=== PATIENT | female | born 1960 | race Caucasian/White ===

== ENCOUNTER 2018-02-27 21:33 | Inpatient (IN) | payer SELFPAY ==
[2018-02-27] MEDS ORDERED: ASPIRIN 81 MG TABLET, CHEWABLE PO ONE (22:16)
[2018-02-27] MEDS ORDERED: METOPROLOL TARTRATE PF/INJ 5 MG/5 ML SDV IV ONE (22:17)
[2018-02-27] MEDS ORDERED: NITROGLYCERIN 2% OINTMENT 1 GM PACKET TP ONE (22:17)
[2018-02-27] MEDS ORDERED: ACETAMINOPHEN 325 MG TABLET PO ONE (22:23)
[2018-02-27 22:27] LABS: ABSOLUTE BASOPHILS # (AUTO) 0.1 10^3/uL (0.0-0.2); ABSOLUTE EOSINOPHILS # (AUTO) 0.2 10^3/uL (0.0-0.6); ABSOLUTE LYMPHOCYTES (AUTO) 3.2 10^3/uL (0.5-4.7); ABSOLUTE MONOCYTES (AUTO) 0.6 10^3/uL (0.1-1.4); ABSOLUTE NEUT (AUTO) 7.6 10^3/uL (1.7-8.2); BASOPHILS % (AUTO) 0.6 % (0-2); EOSINOPHILS % (AUTO) 1.3 % (0-6); HEMATOCRIT 45.4 % (36.0-47.0); HEMOGLOBIN 15.4 g/dL (12.0-15.5); LYMPHOCYTES % (AUTO) 27.3 % (13-45); MEAN CORPUSCULAR HEMOGLOBIN 30.9 pg (27.0-33.4); MEAN CORPUSCULAR HGB CONC 33.9 g/dL (32.0-36.0); MEAN CORPUSCULAR VOLUME 91 fl (80-97); MONOCYTES % (AUTO) 5.5 % (3-13); PLATELET COUNT 142 10^3/uL (150-450); RED BLOOD COUNT 4.97 10^6/uL (3.72-5.28); RED CELL DISTRIBUTION WIDTH 15.2 % (11.5-14.0); SEGMENTED NEUTROPHILS % (AUTO) 65.3 % (42-78); TOTAL CELLS COUNTED % (AUTO) 100 %; WHITE BLOOD COUNT 11.6 10^3/uL (4.0-10.5)
[2018-02-27 22:35] LABS: ALANINE AMINOTRANSFERASE 14 U/L (9-52); ALBUMIN 4.3 g/dL (3.5-5.0); ALKALINE PHOSPHATASE 168 U/L (38-126); ANION GAP 13 (5-19); ASPARTATE AMINO TRANSFERASE 21 U/L (14-36); BILIRUBIN,DIRECT 0.5 mg/dL (0.0-0.4); BLOOD UREA NITROGEN 14 mg/dL (7-20); CALCIUM 11.4 mg/dL (8.4-10.2); CARBON DIOXIDE 26 mmol/L (22-30); CHLORIDE 100 mmol/L (98-107); CREATINE KINASE 32 U/L (30-135); GLUCOSE 113 mg/dL (75-110); SODIUM 139.4 mmol/L (137-145); TOTAL PROTEIN 7.6 g/dL (6.3-8.2)
--- NOTE | 2018-02-27 22:38 | RADIOLOGY REPORT (SQ) ---
PROCEDURE: XR CHEST 1 VIEW HISTORY: chest pain COMPARISON: None TECHNIQUE: The study was done on 02/27/2018 at 10:26 PM, local time Single projection of the chest was done. FINDINGS: Scoliotic curvature of the thoracic spine is noted . There are no discrete airspace infiltrates, pneumothoraces or pleural effusions. The pulmonary vascularity is normal. The cardiomediastinal silhouette is unremarkable for patient's age and sex. IMPRESSION: There is no acute pleural-parenchymal process seen in the imaged lung dumont. Location of Interpretation: Teleradiology
[2018-02-27 22:43] LABS: CREATINE KINASE MB 1.05 ng/mL (<4.55); TROPONIN I 0.021 ng/mL
[2018-02-27] MEDS ORDERED: MORPHINE SULFATE 10 MG/ML INJ IV ONE (22:56)
--- NOTE | 2018-02-28 00:23 | ER Document Report ---
ED Cardiac - General Chief Complaint: Chest Pain Stated Complaint: CHEST PAIN, SHORTNESS OF BREATH, PAIN IN RIGHT ARM Time Seen by Provider: 02/27/18 22:15 Mode of Arrival: Ambulatory Information source: Patient Notes: This is a 57-year-old female with a history of CHF, hypertrophic cardiomyopathy , hypertension, hiatal hernia and migraines. Patient is currently on no medicines. She presents to the emergency room after developing chest pain tonight at approximately 8:52 PM. The chest pain started during light activity. Patient states it was a tightness which radiated to her jaws and right arm. She does states she is had blood pressures which have been elevated recently (230/100). She does states she took her own nitroglycerin and there was some relief. TRAVEL OUTSIDE OF THE [place] IN LAST 30 DAYS: No - HPI Patient complains to provider of: Chest pain Use of: denies: Alcohol, Amphetamines, Bath salts, Caffeine, Cocaine, Decongestants, Other Was the onset of pain: Gradual Is the pain a: New problem Chest pain location: Substernal Quality of pain: Tightness Chest pain radiation location: Left jaw, Right jaw, Right arm Severity now: Mild Severity at worst: Moderate Pain level currently: 1 Chest pain precipitating factors: At Rest Cardiac risk factors: Hypertension, Hx CHF Associated symptoms: Shortness of breath Exacerbated by: Activity Relieved by: Rest Similar symptoms previously: Yes Recently seen / treated by doctor: No - Related Data Allergies/Adverse Reactions: nitroglycerin [Nitroglycerin] Allergy (Verified 09/02/10 15:17) Past Medical History - General Information source: Patient - Social History Smoking Status: Current Every Day Smoker Cigarette use (# per day): Yes - 10 cigarettes a day Chew tobacco use (# tins/day): No Smoking Education Provided: Yes Frequency of alcohol use: None Drug Abuse: None Lives with: Family Family History: None Patient has suicidal ideation: No Patient has homicidal ideation: No - Past Medical History Cardiac Medical History: Reports: Hx Congestive Heart Failure, Hx Hypertension Pulmonary Medical History: Reports: None Neurological Medical History: Reports: None Endocrine Medical History: Reports: None Renal/ Medical History: Reports: None. Denies: Hx Peritoneal Dialysis Malignancy Medical History: Reports: None GI Medical History: Reports: None Musculoskeletal Medical History: Reports None Skin Medical History: Reports None Psychiatric Medical History: Reports: None Traumatic Medical History: Reports: None Infectious Medical History: Reports: None Surgical Hx: Negative Review of Systems - Review of Systems Constitutional: denies: Chills, Fever EENT: No symptoms reported Cardiovascular: See HPI Respiratory: See HPI Gastrointestinal: Nausea. denies: Abdominal pain, Vomiting, Black stools Genitourinary: No symptoms reported Female Genitourinary: No symptoms reported Musculoskeletal: No symptoms reported Skin: No symptoms reported Hematologic/Lymphatic: No symptoms reported Neurological/Psychological: No symptoms reported Physical Exam - Vital signs Vitals: Temp Pulse Resp BP Pulse Ox 98.1 F 89 18 151/87 H 20 L 02/27/18 21:33 02/27/18 21:33 02/27/18 21:33 02/27/18 21:33 02/27/18 21:33 Notes: Physical exam: GENERAL: She is alert and oriented x3, no acute distress. She is complaining of mild 2 out of 10 pain. HEAD: Atraumatic, normocephalic. EYES: Pupils equal round and reactive to light, extraocular movements intact, sclera anicteric, conjunctiva are normal. ENT: TMs normal, nares patent, oropharynx clear without exudates. Moist mucous membranes. NECK: Normal range of motion, supple without obvious mass or JVD. LUNGS: Breath sounds clear to auscultation bilaterally and equal. No wheezes rales or rhonchi. HEART: Regular rate and rhythm without murmurs, rubs or gallops. ABDOMEN: Soft, normoactive bowel sounds. No tenderness to palpation. No guarding, no rebound. No masses appreciated. EXTREMITIES: Normal range of motion, no pitting or edema. No clubbing or cyanosis. NEUROLOGICAL: Cranial nerves II through XII grossly intact. Normal speech, moving all extremities. PSYCH: Normal mood, normal affect. SKIN: Warm, Dry, normal turgor, no rashes or lesions noted. Course - Re-evaluation Re-evalutation: 02/28/18 02:45 Patient treated with aspirin, nitrates, metoprolol. She was pain-free at the time of admission. - Vital Signs Vital signs: Temp Pulse Resp BP Pulse Ox 98.1 F 89 24 H 122/79 95 02/27/18 21:33 02/27/18 21:33 02/28/18 02:01 02/28/18 02:00 02/28/18 02:00 - Laboratory Result Diagrams: 02/27/18 22:08 02/27/18 22:08 Laboratory results interpreted by me: 02/27/18 02/27/18 22:08 22:08 WBC 11.6 H RDW 15.2 H Plt Count 142 L Glucose 113 H Calcium 11.4 H Direct Bilirubin 0.5 H Alkaline Phosphatase 168 H - Diagnostic Test Radiology reviewed: Image reviewed, Reports reviewed - No obvious infiltrates - EKG Interpretation by Me Rate: Normal Rhythm: NSR - EKG showed normal sinus rhythm with T wave inversions V1 V2 V3. No recent ECG (the last one was 2010). Discharge - Discharge Clinical Impression: Chest pain Condition: Stable Disposition: ADMITTED OBSERVATION Admitting Provider: Hospitalist - Dr Murillo Unit Admitted: Telemetry
[2018-02-28] MEDS ORDERED: ACETAMINOPHEN 325 MG TABLET PO PRN (01:11)
[2018-02-28] MEDS ORDERED: PROMETHAZINE HCL 25 MG TABLET PO PRN (01:11)
[2018-02-28] MEDS ORDERED: PROMETHAZINE HCL INJ 25 MG/1 ML VIAL IV PRN (01:11)
[2018-02-28] MEDS ORDERED: MAG HYDROX/AL HYDROX/SIMETH SUSP 30 ML UDCUP PO PRN (01:11)
[2018-02-28] MEDS ORDERED: METOPROLOL TARTRATE PF/INJ 5 MG/5 ML SDV IV PRN (02:02)
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
[2018-02-28] MEDS: NORMAL SALINE 1000 ML 1,000 ML IV PRN ×2 (03:32→23:25)
--- NOTE | 2018-02-28 07:35 | EKG REPORT ---
SEVERITY:- ABNORMAL ECG - SINUS RHYTHM LVH W/ REPOL ABNORMALITIES, POSSIBLE ISCHEMIA : Confirmed by: Ghassan Burnette MD 28-Feb-2018 07:34:36
[2018-02-28 09:35] LABS: APPEARANCE,URINE CLEAR; BILIRUBIN,URINE NEGATIVE (NEGATIVE); COLOR,URINE YELLOW; GLUCOSE, URINE NEGATIVE (NEGATIVE); KETONES,URINE NEGATIVE (NEGATIVE); LEUKOCYTE ESTERASE,URINE NEGATIVE (NEGATIVE); NITRITE,URINE NEGATIVE (NEGATIVE); PROTEIN,URINE NEGATIVE (NEGATIVE); URINE SPECIFIC GRAVITY 1.009
[2018-02-28 09:53] LABS: URINE AMPHETAMINES SCREEN NEGATIVE; URINE BARBITURATES SCREEN NEGATIVE; URINE BENZODIAZEPINES SCREEN NEGATIVE; URINE COCAINE SCREEN NEGATIVE; URINE MARIJUANA (THC) SCREEN NEGATIVE; URINE METHADONE SCREEN NEGATIVE; URINE PHENCYCLIDINE SCREEN NEGATIVE
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
[2018-02-28] MEDS: ENOXAPARIN SODIUM INJ 40 MG/0.4 ML DISP.SYRIN SUBCUT SCH (11:45)
--- NOTE | 2018-02-28 13:03 | DRAGON STRESS TEST REPORT ---
INTRAVENOUS LEXISCAN CARDIOLITE STRESS TEST USING SINGLE PHOTON EMMISION COMPUTERIZED TOMOGRAPHIC. DATE OF PROCEDURE: February 28, 2018, INDICATION : Chest pain CARDIAC RISK FACTORS: Hypertension, tobacco abuse RESTING EKG: Sinus rhythm, ST segment depression with T wave inversion in inferior and anterior precordial lead STRESS EKG: No significant ST segment changes noted with LexiScan bolus REASON FOR TERMINATION: Protocol. PROCEDURE REPORT: Baseline heart rate 80 beats per minute with blood pressure of 132/85. Patient had no significant complaints. Patient was bolused with Lexiscan 0.4 mg intravenously followed by saline bolus. Heart rate at 2 minutes post bolus 104 with a blood pressure of 144/94. 3 minutes post bolus heart rate 109 with blood pressure of 152/92. Additional ST segment depression was noted, of 2 mm in anterior precordial lead. Patient also developed chest pain. Patient received Aminophyllin 75 mg followed by 50 mg after 3 minutes of Lexiscan bolus. CONCLUSIONS: Normal EKG and hemodynamic response to IV LexiScan. NUCLEAR DATA: At rest the patient was given 10.03 millicuries of technetium 99 sestamibi injected intravenously. As per protocol rest gated SPECT images were obtained. On day of stress test, the patient was given intravenous LexiScan at a dose of 0.4 mg in 5 mL intravenously, followed by flush with normal saline. Subsequently the stress dose of 32.9 millicuries of technetium 99 sestamibi was injected intravenously. As per protocol stress gated images were obtained. NUCLEAR INTERPRETATION: Both raw and processed data were used for interpretation. Visual, qualitative, computer-generated quantitative data was used. There was good myocardial uptake of technetium compound. Motion artifact and soft tissue attenuations were noted. Increased visceral uptake was noted. Decreased uptake noted in the inferior wall and inferoapex of moderate severity. No definitive areas of fixed perfusion defect or scars noted. EKG gated imaging showed LV EF at 41 %, stress, 53% rest EF, inferior wall hypokinesia noted in the stress imaging.. T. I D. ratio was 1.25. Lung heart ratio noted to be within normal limits neuro 0.26. No significant extracardiac and abnormal radiotracer activities were noted. RV free wall uptake was noted to be WNL. IMPRESSION: Also refer to comments under nuclear interpretation. Also test results needs to be interpreted in the context of pretest probability. 1. Rate transient perfusion defect noted inferior wall and inferoapex consistent with ischemia in this location. 2. There is no definitive scintigraphic evidence of myocardial infarction/scar. 3. EKG gated imaging shows left ventricular ejection fraction of approx. 41 %. Inferior wall hypokinesia noted 4. Clinical correlation requested as worse disease and or balanced ischemia could be missed. In approximately 10% of the cases Lexiscan may not cause adequate vasodilatory stress. RECOMMENDATIONS: Aggressive risk factor modification and medical management. Further evaluation may be needed if continued symptoms or other high risk indicators are noted on clinical evaluation. Consider heart catheterization if patient fails medical management. Close cardiology follow-up is also recommended. Clinical correlation with echocardiogram derived ejection fraction. Inability to exercise by itself can lead to increased cardiovascular event risks. Consider cardiology consultation and or follow-up if clinically indicated. I am available for cardiology evaluation and consultation if requested by the underwriting technician, unless patient already has a traffic signal repairer. Dr. Bren Cardoso. MRCP Board certified in cardiology and sleep medicine. Board certified in nuclear cardiology, adult echocardiography. ED
--- NOTE | 2018-02-28 13:11 | RADIOLOGY REPORT (SQ) ---
EXAM DESCRIPTION: CTA CHEST COMPLETED DATE/TIME: 02/28/2018 12:56 pm REASON FOR STUDY: chest pain, r/o PE, eval for coronarycalcification COMPARISON: None. TECHNIQUE: CT scan of the chest performed using helical scanning technique with dynamic intravenous contrast injection. Images reviewed with lung, soft tissue and bone windows. Reconstructed coronal and sagittal MPR images reviewed. Additional 3 dimensional post-processing performed to develop Maximal Intensity Projection images ([place] P). All images stored on PACS. All CT scanners at this facility use dose modulation, iterative reconstruction, and/or weight based d osing when appropriate to reduce radiation dose to as low as reasonably achievable (ALARA). [facility]: Dose Right [facility]: CareDose [facility]: Dose Right [facility]: Teradose 4D [facility]: Quantcast CONTRAST TYPE AND DOSE: contrast/concentration: Isovue 350.00 mg/ml; Total Contrast Delivered: 65.0 ml; Total Saline Delivered: 101.0 ml Contrast bolus optimized for the pulmonary arteries. Not diagnostic for the aorta. RENAL FUNCTION: GFR > 60. RADIATION DOSE: CT Rad equipment meets quality standard of care and radiation dose reduction techniq ues were employed. CTDIvol: 11.3 - 11.4 mGy. DLP: 417 mGy-cm. . LIMITATIONS: None. FINDINGS: LUNGS AND PLEURA: No masses, infiltrates, or pneumothorax. No pleural effusions or pleura l calcifications. AORTA AND GREAT VESSELS: No aneurysm. Contrast bolus not optimized for the aorta. HEART: No pericardial effusion. Mild coronary arterial calcifications. PULMONARY ARTERIES: No emboli visualized in the main pulmonary arteries or the segmental branches. HILAR AND MEDIASTINAL STRUCTURES: No identified masses or abnormal nodes. HARDWARE: None in the chest. UPPER ABDOMEN: No significant findings. Limited exam. THYROID AND OTHER SOFT TISSUES: No masses. No adenopathy. BONES: No acute or significant finding. 3D MIPS: Confirm above findings. OTHER: No other significant finding. IMPRESSION: No PE. COMMENT: Quality ID # [id number]: Final reports with documentation of one or more dose reduction techniques (e.g., Automated exposure control, adjustment of the mA and/or kV according to patient size, use of iterative reconstruction technique) TECHNICAL DOCUMENTATION: JOB ID: [id number] [employer]- All Rights Reserved Reading location - IP/workstation name: [facility]
[2018-02-28] MEDS ORDERED: AMINOPHYLLINE INJ/PF 250 MG/10 ML SDV IV ONE (14:21)
[2018-02-28] MEDS ORDERED: REGADENOSON INJ 0.4 MG/5 ML DISP.SYRIN IV ONE (14:21)
[2018-02-28] MEDS: NICOTINE 21 MG/24 HR PATCH.TD24 TD SCH (16:15)
[2018-02-28] MEDS: MORPHINE SULFATE 10 MG/ML INJ IV PRN (18:21)
--- NOTE | 2018-02-28 18:44 | XCELERA REPORT ---
[address] [address] Transthoracic Echocardiogram Report Name: KIRTI BRIDGES Age: 57 yrs Gender: Female : 1960 Patient Status: Inpatient Patient Location: [address] [place] [address] Study Date: 02/28/2018 12:23 PM Procedure: A complete two-dimensional transthoracic echocardiogram was performed (2D, M-mode, spectral and color flow Doppler). The study was technically adequate with some images being suboptimal in quality. Reason For Study: Chest pain, abnormal EKG Ordering Physician: LINA LOPEZ Performed By: Ioana Loomis Interpretation Summary The left ventricular ejection fraction is normal. Doppler measurements suggest pseudonormalized left ventricular relaxation, which is associated with grade II/IV or mild to moderate diastolic dysfunction There is mild to moderate concentric left ventricular hypertrophy. The left ventricle is grossly normal size. Wall motion cannot be accurately commented on, but no definite regional wall motion abnormalities noted. The right ventricle appears to be hypertrophied The right ventricular systolic function is normal. The left atrium is mildly dilated. The right atrium is normal. There is a trace amount of mitral regurgitation There is no mitral valve stenosis. No aortic regurgitation is present. There is no aortic valve stenosis There is no tricuspid stenosis. No tricuspid regurgitation. The aortic root is not well visualized but is probably normal size. The inferior vena cava appeared small and collapsed with respiration (RAP 0-5 mmHg) There is no pericardial effusion. MMode/2D Measurements & Calculations RVDd: 3.1 cm LVIDd: 5.2 cm FS: 38.4 % Ao root diam: 2.6 cm IVSd: 1.0 cm LVIDs: 3.2 cm EDV(Teich): 131.7 ml Ao root area: 5.2 cm2 LVPWd: 1.1 cm ESV(Teich): 41.8 ml EF(Teich): 68.2 % Doppler Measurements & Calculations MV E max jonathan: MV dec slope: Ao V2 max: LV V1 max P.2 cm/sec 168.9 cm/sec 7.8 mmHg MV A max jonathan: 412.9 cm/sec2 Ao max PG: LV V1 max: 100.5 cm/sec MV dec time: 0.16 sec11.4 mmHg 139.4 cm/sec MV E/A: 0.67 PA V2 max: PI max jonathan: 120.1 cm/sec 164.9 cm/sec PA max P.8 mmHg PI max P.9 mmHg PI dec slope: 198.4 cm/sec2 Left Ventricle The left ventricle is grossly normal size. There is mild to moderate concentric left ventricular hypertrophy. The left ventricular ejection fraction is normal. Doppler measurements suggest pseudonormalized left ventricular relaxation, which is associated with grade II/IV or mild to moderate diastolic dysfunction. Wall motion cannot be accurately commented on, but no definite regional wall motion abnormalities noted. Right Ventricle The right ventricle is normal in size, thickness and function. The right ventricle appears to be hypertrophied. The right ventricular systolic function is normal. Atria The right atrium is normal. The left atrium is mildly dilated. Interarterial septum not well visualized and not well dopplered. Cannot comment on ASD/PFO presence. Mitral Valve The mitral valve is grossly normal. There is no mitral valve stenosis. There is a trace amount of mitral regurgitation. Aortic Valve The aortic valve is grossly normal. There is no aortic valve stenosis. No aortic regurgitation is present. Tricuspid Valve The tricuspid valve is not well visualized, but is grossly normal. There is no tricuspid stenosis. No tricuspid regurgitation. Pulmonic Valve The pulmonic valve is not well visualized. Great Vessels The aortic root is not well visualized but is probably normal size. The inferior vena cava appeared small and collapsed with respiration (RAP 0-5 mmHg). Effusions There is no pericardial effusion. : LINA LOPEZ > Lina Lopez
[2018-02-28] MEDS ORDERED: CLOPIDOGREL BISULFATE 300 MG TABLET PO ONE (19:15)
[2018-02-28] MEDS: METOPROLOL SUCCINATE 25 MG TAB.SR.24H PO SCH (21:54)
[2018-02-28] MEDS: LISINOPRIL 5 MG TABLET PO SCH (21:55)
[2018-02-28] MEDS: ATORVASTATIN CALCIUM 80 MG TABLET PO SCH (21:55)
[2018-02-28] MEDS ORDERED: ATORVASTATIN CALCIUM 40 MG TABLET PO SCH (22:00)
[2018-03-01] MEDS: NORMAL SALINE 1000 ML 1,000 ML IV PRN (05:45)
[2018-03-01 06:10] LABS: CHOLESTEROL 212.39 mg/dL (0-200); TRIGLYCERIDES 198 mg/dL (<150)
[2018-03-01 06:21] LABS: DIRECT LDL 141 mg/dL (<100)
[2018-03-01 06:22] LABS: VLDL CHOLESTEROL 39.6 mg/dL (10-31)
[2018-03-01] MEDS: LISINOPRIL 5 MG TABLET PO SCH (09:23)
[2018-03-01] MEDS: NICOTINE 21 MG/24 HR PATCH.TD24 TD SCH (09:24)
[2018-03-01] MEDS: ENOXAPARIN SODIUM INJ 40 MG/0.4 ML DISP.SYRIN SUBCUT SCH (09:24)
[2018-03-01] MEDS: ASPIRIN 81 MG TABLET, CHEWABLE PO SCH (09:24)
[2018-03-01] MEDS: METOPROLOL SUCCINATE 25 MG TAB.SR.24H PO SCH ×2 (09:24→22:10)
[2018-03-01] MEDS: CLOPIDOGREL BISULFATE 75 MG TABLET PO SCH (09:24)
[2018-03-01] MEDS ORDERED: CLOPIDOGREL BISULFATE 300 MG TABLET PO SCH (10:00)
[2018-03-01 14:29] LABS: ALANINE AMINOTRANSFERASE 23 U/L (9-52); ALBUMIN 3.9 g/dL (3.5-5.0); ALKALINE PHOSPHATASE 156 U/L (38-126); ANION GAP 13 (5-19); ASPARTATE AMINO TRANSFERASE 19 U/L (14-36); BILIRUBIN,DIRECT 0.3 mg/dL (0.0-0.4); BILIRUBIN,TOTAL 0.7 mg/dL (0.2-1.3); BLOOD UREA NITROGEN 13 mg/dL (7-20); CALCIUM 11.1 mg/dL (8.4-10.2); CARBON DIOXIDE 25 mmol/L (22-30); CHLORIDE 102 mmol/L (98-107); GLUCOSE 124 mg/dL (75-110); POTASSIUM 4.2 mmol/L (3.6-5.0); SODIUM 140.3 mmol/L (137-145); TOTAL PROTEIN 6.9 g/dL (6.3-8.2)
--- NOTE | 2018-03-01 16:19 | PDOC PROGRESS REPORT ---
Subjective Progress Note for:: 03/01/18 Subjective:: Ms. Chawla is a 57 yr old female with a PMH of HTN and diastolic heart failure (preserved EF) who presented with intermittent chest pain and was admitted to rule out ACS. Troponin was slightly elevated at 0.021 and EKG showed T wave inversions on V1-V4. Patient underwent stress testing yesterday 02/28/18 which was positive for a transient perfusion defect on on the inferior wall and inferoapex consistent with ischemia. Patient had mild exertional chest pain yesterday around 5 pm when she went to the bathroom but has been chest pain free since then. She denies any acute complaint today. Denies SOB, palpitations or dizziness. Reason For Visit: CHEST PAIN Physical Exam Vital Signs: Temp Pulse Resp BP Pulse Ox 98.3 F 74 18 147/87 H 100 03/01/18 12:00 03/01/18 14:00 03/01/18 12:00 03/01/18 12:00 03/01/18 12:00 Intake & Output 02/28/18 03/01/18 03/02/18 06:59 06:59 06:59 Intake Total 2399 266 Output Total 1800 1000 Balance 599 -734 Weight 174 lb 9.698 oz General appearance: PRESENT: no acute distress, well-developed, well-nourished Head exam: PRESENT: atraumatic, normocephalic Eye exam: PRESENT: conjunctiva pink, EOMI, PERRLA. ABSENT: scleral icterus Ear exam: PRESENT: normal external ear exam Mouth exam: PRESENT: moist, tongue midline Neck exam: ABSENT: carotid bruit, JVD, lymphadenopathy, thyromegaly Respiratory exam: PRESENT: clear to auscultation vasquez. ABSENT: rales, rhonchi, wheezes Cardiovascular exam: PRESENT: RRR. ABSENT: diastolic murmur, rubs, systolic murmur Pulses: PRESENT: normal dorsalis pedis pul GI/Abdominal exam: PRESENT: normal bowel sounds, soft. ABSENT: distended, guarding, mass, organolmegaly, rebound, tenderness Rectal exam: PRESENT: deferred Extremities exam: PRESENT: full ROM. ABSENT: calf tenderness, clubbing, pedal edema Neurological exam: PRESENT: alert, awake, oriented to person, oriented to place , oriented to time, oriented to situation, CN II-XII grossly intact. ABSENT: motor sensory deficit Results Laboratory Results: 03/01/18 13:40 03/01/18 03/01/18 03/01/18 05:09 13:40 13:40 Sodium 140.3 Potassium 4.2 Chloride 102 Carbon Dioxide 25 Anion Gap 13 BUN 13 Creatinine 0.74 Est GFR ( Amer) > 60 Est GFR (Non-Af Amer) > 60 Glucose 124 H Calcium 11.1 H Ionized Calcium Analisa 1.37 H Magnesium 2.1 Total Bilirubin 0.7 AST 19 ALT 23 Alkaline Phosphatase 156 H Total Protein 6.9 Albumin 3.9 Triglycerides 198 H Cholesterol 212.39 H LDL Cholesterol Direct 141 H VLDL Cholesterol 39.6 H HDL Cholesterol 34 L 02/28/18 02/28/18 02/28/18 03:58 11:02 17:13 Troponin I 0.019 < 0.012 0.012 Impressions: Chest X-Ray 02/27/18 22:16 IMPRESSION: There is no acute pleural-parenchymal process seen in the imaged lung dumont. Location of Interpretation: Teleradiology Chest/Abdomen CTA 02/28/18 11:46 IMPRESSION: No PE. Assessment & Plan - Diagnosis (1) Chest pain Qualifiers: Chest pain type: unspecified Qualified Code(s): R07.9 - Chest pain, unspecified Is this a current diagnosis for this admission?: Yes Plan: Troponin was slightly elevated at 0.021 and EKG showed T wave inversions on V1- V4. Patient underwent stress testing on 02/28/18 which was positive for a transient perfusion defect on on the inferior wall and inferoapex consistent with ischemia. Cardiology following. Patient will be scheduled for diagnostic cardiac cath tomorrow. (2) Hypercalcemia Is this a current diagnosis for this admission?: Yes Plan: Initial serum calcium was elevated at 11.4. PTH came back elevated at 150. Will check urine Calcium and a neck US as initial imaging to assess the parathyroids. (3) Hypertension Qualifiers: Hypertension type: essential hypertension Qualified Code(s): I10 - Essential (primary) hypertension Is this a current diagnosis for this admission?: Yes Plan: BP running in the 140/80s. Continue lisinopril and metoprolol. (4) CHF (congestive heart failure) Qualifiers: Heart failure chronicity: unspecified Is this a current diagnosis for this admission?: Yes Plan: Not in exacerbation. Recent echo shows normal EF with grade 2 diastolic dysfunction. - Time Time Spent with patient: 15-24 minutes
--- NOTE | 2018-03-01 16:55 | RADIOLOGY REPORT (SQ) ---
EXAM DESCRIPTION: U/S THYROID/SFT TISS HD NECK COMPLETED DATE/TIME: 03/01/2018 4:42 pm REASON FOR STUDY: eval parathyroids,poss primary hyperparathyroidism COMPARISON: CT angio chest 02/28/2018 TECHNIQUE: Dynamic and static johnson-scale images acquired of the thyroid gland. Selected additional c olor/power Doppler images recorded. All images stored to PACS. LIMITATIONS: None. FINDINGS: RIGHT LOBE: Normal size, 3.5 cm in greatest length. Heterogeneous echogenicity without di screte mass. LEFT LOBE: Normal size, 3.6 cm in length. Heterogeneous echogenicity without discrete mass. ISTHMUS: In the midline, a solid thyroid mass is present 3 x 3.2 x 2 cm in size. This is isoechoic t o thyroid tissue, well-circumscribed with increased color flow. No calcifications. Biopsy fine-need le aspirate of this nodule is recommended. OTHER: On the right side, just dorsal to the right lobe thyroid a 1.1 x 0.9 x 0.6 mm nodule is presen t which may represent a parathyroid gland or lymph node. On the left side, just dorsal to the left lobe thyroid, a 9 x 8 x 5 mm nodule is present which may re present a parathyroid gland or lymph node. IMPRESSION: Midline thyroid mass 3.2 x 3 x 2 cm in size. Biopsy recommended. Small hypoechoic solid nodules along the posterior aspect of the right and left midpole thyroid gland which could represent enlarged parathyroid gland. Consider sestamibi follow-up parathyroid scan TECHNICAL DOCUMENTATION: JOB ID: [id number] [employer]- All Rights Reserved Reading location - IP/workstation name: [facility]
[2018-03-01] MEDS: MORPHINE SULFATE 10 MG/ML INJ IV PRN (17:13)
--- NOTE | 2018-03-01 19:53 | PDOC PROGRESS REPORT ---
Subjective Progress Note for:: 03/01/18 Subjective:: Patient seems to be doing better with gradual improvement. Pt is denying any further chest arm or neck discomfort. Patient denying any PND, orthopnea. Patient denied any sustained palpitations, dizziness, syncope, near syncope. Patient denying any fever chills. Patient denying any other significant discomfort. Patient is maintaining sinus rhythm. Review of systems: Rest review of systems negative. Medications: Medications have been reviewed. Reason For Visit: CHEST PAIN Physical Exam Vital Signs: Temp Pulse Resp BP Pulse Ox 98.5 F 76 18 159/89 H 100 03/01/18 16:00 03/01/18 16:00 03/01/18 16:00 03/01/18 18:12 03/01/18 16:00 Intake & Output 02/28/18 03/01/18 03/02/18 06:59 06:59 06:59 Intake Total 2399 740 Output Total 1800 1700 Balance 599 -960 Weight 79.2 kg Exam: GENERAL: well-nourished and in no acute distress. Alert and oriented x3 HEAD: Atraumatic, normocephalic. EYES: [place], sclera anicteric, conjunctiva are normal. ENT: Moist mucous membranes. No oral ulcerations or bleeding gums noted. No obvious ear, nose or throat abnormalities noted. NECK: supple without lymphadenopathy. Trachea is central. No cervical or axillary lymphadenopathy noted. Carotids are 2+, JVD WNL LUNGS: Breath sounds clear bilaterally. No wheezes rales or rhonchi noted. No significant dullness noted on percussion. CHEST: Palpation of the chest wall shows no significant chest wall tenderness. 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 ABDOMEN: Soft, no significant tenderness appreciated, normoactive bowel sounds. No guarding, no rebound. No rigidity noted . No masses appreciated. EXTREMITIES: Pedal pulses are 1-2+, no calf tenderness noted. No clubbing or cyanosis. negative pedal edema noted NEUROLOGICAL: Focused neurological exam showed no significant neurologic deficit. Normal speech, no focal weakness appreciated. PSYCH: Normal mood, normal affect. Judgment and insight within normal limits. SKIN: No significant ecchymosis, skin is noted to be warm. MUSCULOSKELETAL EXAM: No significant acute joint swelling noted. Results Laboratory Results: 03/01/18 13:40 03/01/18 03/01/18 03/01/18 05:09 13:40 13:40 Sodium 140.3 Potassium 4.2 Chloride 102 Carbon Dioxide 25 Anion Gap 13 BUN 13 Creatinine 0.74 Est GFR ( Amer) > 60 Est GFR (Non-Af Amer) > 60 Glucose 124 H Calcium 11.1 H Ionized Calcium Analisa 1.37 H Magnesium 2.1 Total Bilirubin 0.7 AST 19 ALT 23 Alkaline Phosphatase 156 H Total Protein 6.9 Albumin 3.9 Triglycerides 198 H Cholesterol 212.39 H LDL Cholesterol Direct 141 H VLDL Cholesterol 39.6 H HDL Cholesterol 34 L 02/28/18 02/28/18 02/28/18 03:58 11:02 17:13 Troponin I 0.019 < 0.012 0.012 EKG Comments: Telemetry shows sinus rhythm without any sustained tachycardia or bradycardia. Impressions: Chest X-Ray 02/27/18 22:16 IMPRESSION: There is no acute pleural-parenchymal process seen in the imaged lung dumont. Location of Interpretation: Teleradiology Chest/Abdomen CTA 02/28/18 11:46 IMPRESSION: No PE. Thyroid Ultrasound 03/01/18 09:52 IMPRESSION: Midline thyroid mass 3.2 x 3 x 2 cm in size. Biopsy recommended. Small hypoechoic solid nodules along the posterior aspect of the right and left midpole thyroid gland which could represent enlarged parathyroid gland. Consider sestamibi follow-up parathyroid scan Assessment & Plan - Diagnosis (1) Chest pain Qualifiers: Chest pain type: unspecified Qualified Code(s): R07.9 - Chest pain, unspecified Is this a current diagnosis for this admission?: Yes (2) Dyspnea Qualifiers: Dyspnea type: dyspnea on exertion Qualified Code(s): R06.09 - Other forms of dyspnea Is this a current diagnosis for this admission?: Yes (3) CHF (congestive heart failure) Qualifiers: Heart failure chronicity: unspecified Is this a current diagnosis for this admission?: Yes (4) Hypercalcemia Is this a current diagnosis for this admission?: Yes (5) Hypertension Qualifiers: Hypertension type: essential hypertension Qualified Code(s): I10 - Essential (primary) hypertension Is this a current diagnosis for this admission?: Yes - Notes Notes: Chest pain: Patient had nuclear stress test which was positive for inferior wall ischemia. Discussed various option of medical management, cardiac catheterization guided management in detail with the patient. Discussed that she is likely to do okay with medical management since her LVEF is WNL. However also told that sometimes, disease could be more extensive than noted on nuclear stress test and a cardiac catheterization guided therapy should also be considered. Cardiac catheterization procedure was discussed. Patient informed that cardiac catheterization can be performed in this institution but if intervention is needed she will need to be transported to another hospital. Patient undecided about her options. Patient was told to let her decisions known to hospitalist and nurses. Dyspnea: Multifactorial. Possibly ischemia equivalent symptom, possible underlying COPD, valvular heart disease, diastolic/systolic dysfunction. 2D echo shows normal LVEF. This was reviewed with the patient. Hypercalcemia: Calcium is high, since patient is a high smoker, would recommend CT scan of the chest as screening test. Hypertension: Would recommend good control of blood pressure with a blood pressure goal of 135/85 in this lady with EKG changes. Tobacco abuse: Patient has been advised to quit smoking. - Time Time with patient: Greater than 35 minutes - CODE STATUS was discussed, patient remains full code. Surrogate decision-maker unchanged. Multiple medical problems were addressed. More than 50% of the time spent coordinating care, discussing management plans with involved caregivers. Management plans discussed with involved personnels. Medical decision making was of moderate to high complexity, patient's has multiple comorbidities. Medications reviewed and adjusted accordingly: Yes
[2018-03-01] MEDS: NITROGLYCERIN 0.4 MG/TAB 25 TAB/BOTTLE SL PRN ×2 (21:04→23:58)
[2018-03-01] MEDS: ATORVASTATIN CALCIUM 80 MG TABLET PO SCH (22:10)
[2018-03-01] MEDS ORDERED: HYDRALAZINE HCL INJ/PF 20 MG/1 ML SDV ONE (23:18)
[2018-03-02] MEDS ORDERED: DIAZEPAM 5 MG TABLET PO PRN (05:00)
[2018-03-02] MEDS ORDERED: DIPHENHYDRAMINE HCL 50 MG CAPSULE PO PRN (05:00)
[2018-03-02] MEDS ORDERED: RADIAL COCKTAIL SYRINGE 10 ML IV PRN ×4 (05:00)
[2018-03-02] MEDS ORDERED: HYDRALAZINE HCL INJ/PF 20 MG/1 ML SDV IV PRN (06:37)
[2018-03-02] MEDS ORDERED: LIDOCAINE 1% INJ-PF (10 MG/ML) 30 ML SDV ONE (08:04)
[2018-03-02] MEDS ORDERED: MIDAZOLAM 2 MG/2 ML INJ ONE (08:49)
--- NOTE | 2018-03-02 08:49 | Physician Advisory Note ---
Physician Advisor ProgressNote .: Pursuant to the plan for [facility], I have reviewed the medical record for this patient. Physician Advisor Statement: Please consider documenting, if you agree: 1. "acute CP, suspect " (stress test is positive for ischemia, but manager strategic sourcing will need to know if you agree w/that impression, explicitly ...) 2. Medical necessity is nicely documented for continued stay through 2 nights due to abnormal stress test w/plan for cath here, & recurrent CP. May change to Inpatient status. Thanks! CK
[2018-03-02] MEDS ORDERED: FENTANYL CITRATE INJ/PF 100 MCG/2 ML AMPUL ONE (08:50)
[2018-03-02] MEDS ORDERED: HEPARIN SOD (PORCINE) 1,000 UNIT/ML 10 ML VIAL ONE (08:50)
[2018-03-02] MEDS ORDERED: FLUMAZENIL INJ 0.5 MG/5 ML VIAL ONE (08:55)
[2018-03-02] MEDS ORDERED: NALOXONE HCL INJ/PF 0.4 MG/1 ML SDV ONE (08:55)
[2018-03-02] MEDS ORDERED: ATROPINE SULFATE INJ 1 MG/10 ML DISP.SYRIN IV ONE (08:56)
[2018-03-02] MEDS ORDERED: EPINEPHRINE INJ 1 MG/10 ML DISP.SYRIN ONE (08:56)
[2018-03-02] MEDS ORDERED: LIDOCAINE 2% INJ-PF (100 MG/5 ML) SYRINGE ONE (08:56)
[2018-03-02] MEDS: LISINOPRIL 5 MG TABLET PO SCH (08:57)
[2018-03-02] MEDS: METOPROLOL SUCCINATE 25 MG TAB.SR.24H PO SCH ×2 (08:59→21:21)
[2018-03-02] MEDS ORDERED: NITROGLYCERIN/D5W 0 MG/0 ML RTUINJ IV ONE (09:01)
[2018-03-02] MEDS ORDERED: PROMETHAZINE HCL INJ 25 MG/1 ML VIAL IV PRN (09:30)
--- NOTE | 2018-03-02 10:40 | PDOC TRANSFER SUMMARY ---
General Admission Date/PCP: 02/28/18 00:37 Resuscitation Status: Full Code - Transfer Diagnosis (1) Chest pain Is this a current diagnosis for this admission?: Yes (2) Hypercalcemia Is this a current diagnosis for this admission?: Yes (3) Hypertension Is this a current diagnosis for this admission?: Yes (4) CHF (congestive heart failure) Is this a current diagnosis for this admission?: Yes - Transfer Medications Home Medications: Amlodipine Besylate/Benazepril [Lotrel 10-40 mg Capsule] 1 each PO DAILY Aspirin [Adult Low Dose Aspirin EC] 81 mg PO DAILY 02/28/18 Furosemide [Lasix 40 mg Tablet] 40 mg PO DAILY 02/28/18 Ibuprofen [Motrin 800 mg Tablet] 800 mg PO TIDP PRN 02/28/18 Omeprazole Magnesium [Prilosec Otc] 40 mg PO DAILY 02/28/18 Transfer Medications: Current Medications Acetaminophen (Tylenol 325 Mg Tablet) 650 mg PO Q4HP PRN PRN Reason: FOR PAIN OR TEMP Stop: 03/30/18 01:10 Last Admin: 03/02/18 00:00 Dose: 650 mg Al Hydrox/Mg Hydrox/Simethicone (Maalox Plus Susp 30 Udcup) 30 ml PO Q6HP PRN PRN Reason: HEARTBURN Stop: 03/30/18 01:10 Aspirin (Aspirin 81 Mg Chewable Tablet) 81 mg PO DAILY [facility] Stop: 03/31/18 09:59 Last Admin: 03/01/18 09:24 Dose: 81 mg Atorvastatin Calcium (Lipitor 80 Mg Tablet) 80 mg PO QHS [facility] Stop: 03/30/18 21:59 Last Admin: 03/01/18 22:10 Dose: 80 mg Clopidogrel Bisulfate (Plavix 75 Mg Tablet) 75 mg PO DAILY [facility] Stop: 03/31/18 09:59 Last Admin: 03/01/18 09:24 Dose: 75 mg Diazepam (Valium 5 Mg Tablet) 10 mg PO .PROCEDURE PRN PRN Reason: THIS MED IS NOT "PRN" Stop: 03/02/18 23:59 Diphenhydramine HCl (Benadryl 50 Mg Capsule) 50 mg PO .PROCEDURE PRN PRN Reason: THIS MED IS NOT "PRN" Stop: 03/02/18 23:59 Enoxaparin Sodium (Lovenox Inj 40 Mg/0.4 Ml Disp.Syrin) 40 mg SUBCUT DAILY [facility] Stop: 03/30/18 09:59 Last Admin: 03/01/18 09:24 Dose: 40 mg Hydralazine HCl (Apresoline Inj/Pf 20 Mg/1 Ml Sdv) 10 mg IV Q6HP PRN PRN Reason: SBP > 160 Stop: 04/01/18 06:36 Sodium Chloride (Nacl 0.9% 1000 Ml Iv Soln) 1,000 mls @ 75 mls/hr IV CONTINUOUS PRN PRN Reason: THIS MED IS NOT "PRN" Stop: 03/30/18 01:10 Last Infusion: 03/01/18 19:00 Dose: Infused Verapamil HCl 5 mg/ Lidocaine HCl 2 ml/ Sodium Chloride 6 ml / Syringe 10 mls @ 0 mls/hr IV .PROCEDURE 03/02 PRN; As Directed PRN Reason: THIS MED IS NOT "PRN" Stop: 03/02/18 23:59 Influenza Virus Vaccine Quadrival (Fluarix Adlt Quad Vac 0.5 Ml Syr) 0.5 ml IM .DISCHARGE PRN PRN Reason: THIS MED IS NOT "PRN" Stop: 03/30/18 02:51 Lisinopril (Prinivil 5 Mg Tablet) 5 mg PO DAILY [facility] Stop: 03/30/18 19:59 Last Admin: 03/02/18 08:57 Dose: 5 mg Metoprolol Succinate (Toprol Xl 25 Mg Tab.Sr) 25 mg PO Q12 JAMILA Stop: 03/30/18 19:14 Last Admin: 03/02/18 08:59 Dose: 25 mg Metoprolol Tartrate (Lopressor Inj/Pf 5 Mg/5 Ml Sdv) 5 mg IV Q6HP PRN PRN Reason: SBP ABOVE 180, DBP ABOVE 105 Stop: 03/30/18 02:01 Last Admin: 03/01/18 17:19 Dose: 5 mg Morphine Sulfate (Morphine 10 Mg/Ml Inj) 1 mg IV Q4HP PRN PRN Reason: FOR CHEST PAIN Stop: 03/07/18 01:21 Last Admin: 03/01/18 17:13 Dose: 1 mg Nicotine (Nicoderm 21 Mg/24 Hr Transderm Patch) 1 each TD DAILY [facility] Stop: 03/30/18 15:59 Last Admin: 03/01/18 09:24 Dose: 1 each Nitroglycerin (Nitrostat 0.4 Mg (1/150 Gr) Tabs 25/Bottle) 1 tab SL Q5MP PRN PRN Reason: FOR CHEST PAIN Stop: 03/30/18 01:20 Last Admin: 03/01/18 23:58 Dose: 0.4 mg Promethazine HCl (Phenergan 25 Mg Tablet) 25 mg PO Q4HP PRN PRN Reason: FOR NAUSEA/VOMITING Stop: 03/30/18 01:10 Promethazine HCl (Phenergan Inj 25 Mg/1 Ml Vial) 25 mg IV Q4HP PRN PRN Reason: FOR NAUSEA/VOMITING Stop: 03/30/18 01:10 - Allergies Allergies/Adverse Reactions: nitroglycerin [Nitroglycerin] Allergy (Verified 09/02/10 15:17) Hospital Course Hospital Course: Ms. Chawla is a 57 yr old female with a PMH of HTN and diastolic heart failure (preserved EF) who presented with intermittent chest pain and was admitted to rule out ACS. Troponin was slightly elevated at 0.021 and EKG showed T wave inversions on V1-V4. Patient underwent stress testing on 02/28/18 which was positive for a transient perfusion defect on on the inferior wall and inferoapex consistent with ischemia. Patient continued to have mild exertional chest pain. [facility] cardiology was consulted. Patient went to the computer laboratory technician this morning but unfortunately, the power went out and cath was cancelled. Discussed with Dr. Cramer. Will transfer patient to [facility] for cardiac cath. Patient was also noted to be hypercalcemia (Ca 11.5) upon presentation. PTH was sent and came back elevated at 150. US of the neck revealed a 3 cm thyroid mass and bilateral parathyroid nodules. Patient likely has primary hyperparathyroidism. A sesatimibi parathyroid scan was ordered and ENT was consulted but these work up will be deferred as patient will be transferred to [facility]. Discussed with Dr. Segovia (admitting hospitalist at [facility]) who has accepted the transfer. Physical Exam Vital Signs: Temp Pulse Resp BP Pulse Ox 98.3 F 79 18 160/98 H 100 03/02/18 08:42 03/02/18 08:42 03/02/18 04:00 03/02/18 08:42 03/02/18 08:42 Intake & Output 03/01/18 03/02/18 03/03/18 06:59 06:59 06:59 Intake Total 2399 2262 Output Total 1800 3450 Balance 599 -1188 Weight 174 lb 9.698 oz 179 lb 3.773 oz General appearance: PRESENT: no acute distress, well-developed, well-nourished Head exam: PRESENT: atraumatic, normocephalic Eye exam: PRESENT: conjunctiva pink, EOMI, PERRLA. ABSENT: scleral icterus Ear exam: PRESENT: normal external ear exam Mouth exam: PRESENT: moist, tongue midline Neck exam: ABSENT: carotid bruit, JVD, lymphadenopathy, thyromegaly Respiratory exam: PRESENT: clear to auscultation vasquez. ABSENT: rales, rhonchi, wheezes Cardiovascular exam: PRESENT: RRR. ABSENT: diastolic murmur, rubs, systolic murmur Pulses: PRESENT: normal dorsalis pedis pul GI/Abdominal exam: PRESENT: normal bowel sounds, soft. ABSENT: distended, guarding, mass, organolmegaly, rebound, tenderness Rectal exam: PRESENT: deferred Extremities exam: PRESENT: full ROM. ABSENT: calf tenderness, clubbing, pedal edema Neurological exam: PRESENT: alert, awake, oriented to person, oriented to place , oriented to time, oriented to situation, CN II-XII grossly intact. ABSENT: motor sensory deficit Results Laboratory Results: 03/01/18 13:40 03/01/18 03/01/18 13:40 13:40 Sodium 140.3 Potassium 4.2 Chloride 102 Carbon Dioxide 25 Anion Gap 13 BUN 13 Creatinine 0.74 Est GFR ( Amer) > 60 Est GFR (Non-Af Amer) > 60 Glucose 124 H Calcium 11.1 H Ionized Calcium Analisa 1.37 H Total Bilirubin 0.7 AST 19 ALT 23 Alkaline Phosphatase 156 H Total Protein 6.9 Albumin 3.9 02/28/18 02/28/18 02/28/18 03:58 11:02 17:13 Troponin I 0.019 < 0.012 0.012 Impressions: Chest X-Ray 02/27/18 22:16 IMPRESSION: There is no acute pleural-parenchymal process seen in the imaged lung dumont. Location of Interpretation: Teleradiology Chest/Abdomen CTA 02/28/18 11:46 IMPRESSION: No PE. Thyroid Ultrasound 03/01/18 09:52 IMPRESSION: Midline thyroid mass 3.2 x 3 x 2 cm in size. Biopsy recommended. Small hypoechoic solid nodules along the posterior aspect of the right and left midpole thyroid gland which could represent enlarged parathyroid gland. Consider sestamibi follow-up parathyroid scan
[2018-03-02] MEDS: CLOPIDOGREL BISULFATE 75 MG TABLET PO SCH (11:45)
[2018-03-02] MEDS: NICOTINE 21 MG/24 HR PATCH.TD24 TD SCH (11:46)
[2018-03-02] MEDS: ASPIRIN 81 MG TABLET, CHEWABLE PO SCH (11:46)
[2018-03-02] MEDS: ENOXAPARIN SODIUM INJ 40 MG/0.4 ML DISP.SYRIN SUBCUT SCH (11:49)
[2018-03-02 12:40] LABS: FREE T3 3.63 pg/mL (2.77-5.27); FREE T4 (FREE THYROXINE) 1.4 ng/dL (0.78-2.19)
[2018-03-02 12:54] LABS: THYROID STIMULATING HORMONE 1.44 uIU/mL (0.47-4.68)
--- NOTE | 2018-03-02 15:02 | RADIOLOGY REPORT (SQ) ---
EXAM DESCRIPTION: NM PARATHYROID IMAGING COMPLETED DATE/TIME: 03/02/2018 2:44 pm REASON FOR STUDY: primary hyperparathyroidism, eval masses on US COMPARISON: CT angio chest 02/28/2018 Thyroid ultrasound 03/01/2018 RADIONUCLIDE AND DOSE: 18.5 millicuries Tc-99m Sestamibi. The route of agent administration: Intravenous ADDITIONAL DRUGS AND DOSES: None. TECHNIQUE: Early and delayed images of the neck acquired following radionuclide administration. LIMITATIONS: None. FINDINGS: Immediate post sestamibi imaging demonstrates avid uptake of the midline thyroid mass seen on yesterday's ultrasound exam. This partially washes out on the delayed images, this could represe nt a thyroid adenoma and, fine-needle aspirate of this thyroid nodule is recommended. On the delayed images in the head and neck, the midline thyroid mass has persistent uptake. The tiny hypoechoic solid nodules seen on thyroid ultrasound of 03/01/2018 dorsal to the right and left lobe t hyroid do not definitely accumulate activity, and could be lymph nodes rather than parathyroid glands . IMPRESSION: Midline thyroid mass with persistent uptake on delayed imaging, worrisome for thyroid tu mor were at adenoma. Fine-needle aspirate recommended. Delayed images demonstrate no other ectopic activity worrisome for thyroid or parathyroid adenoma TECHNICAL DOCUMENTATION: JOB ID: [id number] [employer]- All Rights Reserved Reading location - IP/workstation name: [facility]-[email or web address]
[2018-03-02] MEDS: MORPHINE SULFATE 10 MG/ML INJ IV PRN ×2 (15:32→22:04)
[2018-03-02] MEDS ORDERED: ENOXAPARIN SODIUM INJ 100 MG/1 ML DISP.SYRIN SUBCUT ONE (15:46)
[2018-03-02] MEDS ORDERED: ENOXAPARIN SODIUM INJ 80 MG/0.8 ML DISP.SYRIN SUBCUT ONE (16:00)
--- NOTE | 2018-03-02 18:17 | EKG REPORT ---
SEVERITY:- ABNORMAL ECG - SINUS RHYTHM ABNORMAL T, CONSIDER ISCHEMIA, LATERAL LEADS : Confirmed by: Ghassan Burnette MD 02-Mar-2018 18:16:36
--- NOTE | 2018-03-02 19:09 | Progress Note ---
Provider Note Provider Note: Patient has been accepted at [facility] but they were unable to fit her on today's cath schedule. Patient will be picked up early tomorrow for cath in the morning.
[2018-03-02] MEDS: ATORVASTATIN CALCIUM 80 MG TABLET PO SCH (21:21)
[2018-03-02] MEDS ORDERED: ENOXAPARIN SODIUM INJ 80 MG/0.8 ML DISP.SYRIN SUBCUT SCH (22:00)
[2018-03-02] MEDS: NITROGLYCERIN 0.4 MG/TAB 25 TAB/BOTTLE SL PRN (22:01)
[2018-03-03 07:55] VITALS: BP 156/86
[2018-03-03] MEDS: METOPROLOL SUCCINATE 25 MG TAB.SR.24H PO SCH (09:13)
[2018-03-03] MEDS: LISINOPRIL 5 MG TABLET PO SCH (09:13)
[2018-03-03 13:38] LABS: CALCIUM URINE 24HR 258.5 mg/24 hr (100.0-300.); CREATININE URINE 31.3 mg/dL (Not Estab.)
--- NOTE | 2018-03-03 18:17 | PDOC PROGRESS REPORT ---
Subjective Progress Note for:: 03/02/18 Subjective:: Cardiac cath procedure aborted due to power failure in the [employer] [facility]. Patient to be transferred to [facility] for heart catheterization. [employer] [facility] closed here on Fridays. Patient seems to be doing better with gradual improvement. Pt is denying any further chest arm or neck discomfort. Patient denying any PND, orthopnea. Patient denied any sustained palpitations, dizziness, syncope, near syncope. Patient denying any fever chills. Patient denying any other significant discomfort. Patient is maintaining sinus rhythm. Review of systems: Rest review of systems negative. Medications: Medications have been reviewed. Reason For Visit: STRESS TEST, CARDIAC ISCHEMIA Physical Exam Vital Signs: Temp Pulse Resp BP Pulse Ox 97.9 F 96 18 164/71 H 96 03/02/18 11:56 03/02/18 14:00 03/02/18 11:56 03/02/18 11:56 03/02/18 11:56 Intake & Output 03/01/18 03/02/18 03/03/18 06:59 06:59 06:59 Intake Total 2262 200 Output Total 3450 Balance -1188 200 Weight 81.3 kg Exam: GENERAL: well-nourished and in no acute distress. Alert and oriented x3 HEAD: Atraumatic, normocephalic. EYES: [place], sclera anicteric, conjunctiva are normal. ENT: Moist mucous membranes. No oral ulcerations or bleeding gums noted. No obvious ear, nose or throat abnormalities noted. NECK: supple without lymphadenopathy. Trachea is central. No cervical or axillary lymphadenopathy noted. Carotids are 2+, JVD WNL LUNGS: Breath sounds clear bilaterally. No wheezes rales or rhonchi noted. No significant dullness noted on percussion. CHEST: Palpation of the chest wall shows no significant chest wall tenderness. HEART: [place] [employer], No PSH, 1/6 WAI aortic area, 1/6 alvarez systolic murmur mitral area, no rubs, no gallops. ABDOMEN: Soft, no significant tenderness appreciated, normoactive bowel sounds. No guarding, no rebound. No rigidity noted . No masses appreciated. EXTREMITIES: Pedal pulses are 1-2+, no calf tenderness noted. No clubbing or cyanosis. negative pedal edema noted NEUROLOGICAL: Focused neurological exam showed no significant neurologic deficit. Normal speech, no focal weakness appreciated. PSYCH: Normal mood, normal affect. Judgment and insight within normal limits. SKIN: No significant ecchymosis, skin is noted to be warm. MUSCULOSKELETAL EXAM: No significant acute joint swelling noted. Results Laboratory Results: 03/01/18 13:40 03/02/18 11:50 TSH 1.44 Free T4 1.40 Free T3 pg/mL 3.63 03/02/18 15:32 Troponin I < 0.012 EKG Comments: Sinus rhythm, no acute ST-T wave changes noted Impressions: Chest X-Ray 02/27/18 22:16 IMPRESSION: There is no acute pleural-parenchymal process seen in the imaged lung dumont. Location of Interpretation: Teleradiology Chest/Abdomen CTA 02/28/18 11:46 IMPRESSION: No PE. Thyroid Ultrasound 03/01/18 09:52 IMPRESSION: Midline thyroid mass 3.2 x 3 x 2 cm in size. Biopsy recommended. Small hypoechoic solid nodules along the posterior aspect of the right and left midpole thyroid gland which could represent enlarged parathyroid gland. Consider sestamibi follow-up parathyroid scan Parathyroid Scan Nuclear Medicine 03/02/18 09:09 IMPRESSION: Midline thyroid mass with persistent uptake on delayed imaging, worrisome for thyroid tumor were at adenoma. Fine-needle aspirate recommended. Delayed images demonstrate no other ectopic activity worrisome for thyroid or parathyroid adenoma Assessment & Plan - Diagnosis (1) Chest pain Qualifiers: Chest pain type: unspecified Qualified Code(s): R07.9 - Chest pain, unspecified Is this a current diagnosis for this admission?: Yes (2) Dyspnea Qualifiers: Dyspnea type: dyspnea on exertion Qualified Code(s): R06.09 - Other forms of dyspnea Is this a current diagnosis for this admission?: Yes (3) CHF (congestive heart failure) Qualifiers: Heart failure chronicity: unspecified Is this a current diagnosis for this admission?: Yes (4) Hypercalcemia Is this a current diagnosis for this admission?: Yes (5) Hypertension Qualifiers: Hypertension type: essential hypertension Qualified Code(s): I10 - Essential (primary) hypertension Is this a current diagnosis for this admission?: Yes - Notes Notes: No changes from yesterday's impression and plan. Note that cardiac catheterization could not be completed here and patient to be transferred to [place] for procedure there. Patient in the meantime had a parathyroid scan for hypercalcemia. In the meantime recommend aggressive risk factor modification and medical management. Chest pain: Patient had nuclear stress test which was positive for inferior wall ischemia. Discussed various option of medical management, cardiac catheterization guided management in detail with the patient. Discussed that she is likely to do okay with medical management since her LVEF is WNL. However also told that sometimes, disease could be more extensive than noted on nuclear stress test and a cardiac catheterization guided therapy should also be considered. I am told patient chose to have cardiac catheterization and this was scheduled to be performed this morning but unfortunately could not be performed. Dyspnea: Multifactorial. Possibly ischemia equivalent symptom, possible underlying COPD, valvular heart disease, diastolic/systolic dysfunction. 2D echo shows normal LVEF. This was reviewed with the patient. Hypercalcemia: Calcium is high, since patient is a high smoker, would recommend CT scan of the chest as screening test. Hypertension: Would recommend good control of blood pressure with a blood pressure goal of 135/85 in this lady with EKG changes. Tobacco abuse: Patient has been advised to quit smoking. - Time Time with patient: Greater than 35 minutes - Results of all cardiac evaluation during this hospitalization reviewed. Need for cardiac catheterization discussed. Patient to be transferred to tertiary care for heart catheterization as cardiac catheterization cannot be done in this institution on Fridays. More than 50% of the time spent coordinating care, discussing management plans with involved caregivers. Management plans discussed with involved personnels. Medical decision making was of moderate to high complexity , patient's has multiple comorbidities. Medications reviewed and adjusted accordingly: Yes
== END 2018-03-03 09:31 | disposition short-term general hospital (02) | DRG 311 ==
LOC: ER 21:33 → EH 02-28 00:37 → 4S 02-28 02:37 → OBSVTOIN 03-01 08:00
PROVIDERS: ADMIT Internal Medicine; ATTEND Internal Medicine
DX: I20.9 Angina pectoris, unspecified (principal); I50.32 Chronic diastolic (congestive) heart failure; I11.0 Hypertensive heart disease with heart failure; K21.9 Gastro-esophageal reflux disease without esophagitis; L40.9 Psoriasis, unspecified; F17.210 Nicotine dependence, cigarettes, uncomplicated; E21.0 Primary hyperparathyroidism; Z88.8 Allergy status to other drugs, medicaments and biological substances; Z80.6 Family history of leukemia; Z59.7 Insufficient social insurance and welfare support; Z79.82 Long term (current) use of aspirin; Z23 Encounter for immunization
CPT/HCPCS: 36415; 71045; 71275; 76536; 78070; 78452; 80053; 80061; 80307; 81001; 82330; 82340; 82550; 82553; 82570; 83036; 83735; 83970; 84439; 84443; 84481; 84484; 85025; 90471; 90686; 93005; 93010; 93017; 93306; 96374; 96375; 99285; A9500; G0008; G0378; J0171; J0280; J0360; J0461; J1644; J1650; J2001; J2250; J2270; J2310; J2785; J3010; J3490; J7030; Q9969

== ENCOUNTER 2018-06-24 11:49 | Emergency (ER) | payer SELFPAY ==
[2018-06-24 12:16] LABS: ABSOLUTE BASOPHILS # (AUTO) 0.1 10^3/uL (0.0-0.2); ABSOLUTE EOSINOPHILS # (AUTO) 0.2 10^3/uL (0.0-0.6); ABSOLUTE LYMPHOCYTES (AUTO) 1.7 10^3/uL (0.5-4.7); ABSOLUTE MONOCYTES (AUTO) 0.5 10^3/uL (0.1-1.4); ABSOLUTE NEUT (AUTO) 6.6 10^3/uL (1.7-8.2); BASOPHILS % (AUTO) 0.6 % (0-2); EOSINOPHILS % (AUTO) 1.9 % (0-6); HEMATOCRIT 37.5 % (36.0-47.0); HEMOGLOBIN 12.5 g/dL (12.0-15.5); LYMPHOCYTES % (AUTO) 18.8 % (13-45); MEAN CORPUSCULAR HEMOGLOBIN 28.3 pg (27.0-33.4); MEAN CORPUSCULAR HGB CONC 33.4 g/dL (32.0-36.0); MEAN CORPUSCULAR VOLUME 85 fl (80-97); MONOCYTES % (AUTO) 5.5 % (3-13); PLATELET COUNT 153 10^3/uL (150-450); RED BLOOD COUNT 4.43 10^6/uL (3.72-5.28); RED CELL DISTRIBUTION WIDTH 17.1 % (11.5-14.0); SEGMENTED NEUTROPHILS % (AUTO) 73.2 % (42-78); TOTAL CELLS COUNTED % (AUTO) 100 %
[2018-06-24 12:34] LABS: ALANINE AMINOTRANSFERASE 41 U/L (9-52); ALKALINE PHOSPHATASE 114 U/L (38-126); ANION GAP 7 (5-19); ASPARTATE AMINO TRANSFERASE 26 U/L (14-36); BILIRUBIN,DIRECT 0.3 mg/dL (0.0-0.4); BILIRUBIN,TOTAL 1.1 mg/dL (0.2-1.3); BLOOD UREA NITROGEN 14 mg/dL (7-20); CARBON DIOXIDE 32 mmol/L (22-30); CHLORIDE 104 mmol/L (98-107); CREATINE KINASE 26 U/L (30-135); GLUCOSE 102 mg/dL (75-110); POTASSIUM 4.1 mmol/L (3.6-5.0); SODIUM 143.3 mmol/L (137-145)
--- NOTE | 2018-06-24 12:35 | ER Document Report ---
ED General - General Chief Complaint: Shortness Of Breath Stated Complaint: SHORTNESS OF BREATH Time Seen by Provider: 06/24/18 12:03 Notes: 57-year-old female to emergency department chief complaint of worsening shortness of breath. Patient states that she had a 5 way coronary artery grafting in February. Was on all of the discharge medications for 1 month but ran out of everything. Recently started back on atorvastatin, amlodipine and metoprolol. Was supposed to be on Eliquis however she states that she cannot afford it. Patient does take aspirin. Patient states that she does have some dyspnea on exertion and more orthopnea. She denies any chest pain at this time. Has noticed some increased swelling of her lower extremities. Patient states that her last BNP was 3000. This was measured approximately 2 months ago. Patient denies any tobacco use at this time. Not a heavy drinker. TRAVEL OUTSIDE OF THE [place] IN LAST 30 DAYS: No - HPI Onset/Duration: Gradual Quality of pain: No pain Severity: Mild - Related Data Allergies/Adverse Reactions: nitroglycerin [Nitroglycerin] Allergy (Verified 06/24/18 11:52) Past Medical History - General Information source: Patient - Social History Smoking Status: Former Smoker Frequency of alcohol use: None Drug Abuse: None Family History: Hypertension Patient has suicidal ideation: No Patient has homicidal ideation: No - Past Medical History Cardiac Medical History: Reports: Hx Congestive Heart Failure, Hx Hypertension Pulmonary Medical History: Reports: Hx Bronchitis Renal/ Medical History: Denies: Hx Peritoneal Dialysis GI Medical History: Reports: Hx Gastroesophageal Reflux Disease Musculoskeletal Medical History: Reports Hx Arthritis Skin Medical History: Reports Hx Psoriasis Past Surgical History: Reports: Hx Open Heart Surgery, Hx Tubal Ligation, Other - Breast cyst removal Jaw reduction - Immunizations Hx Diphtheria, Pertussis, Tetanus Vaccination: No Review of Systems - Review of Systems Notes: Constitutional: denies: Chills, Diaphoresis, Fever, Malaise, Weakness EENT: denies: Eye discharge, Blurred vision, Tearing, Double vision, Nose congestion, Nose discharge, Throat swelling, Mouth pain Cardiovascular: denies: Palpitations, Heart racing, Orthopnea, Chest pain Respiratory: denies: Cough, Hurts to breathe, Wheezing, +Shortness of breath Gastrointestinal: denies: Abdominal pain, Diarrhea, Nausea, Vomiting, Black stools, bright red blood in stool Genitourinary: denies: Burning, Dysuria, Discharge, Frequency, Flank pain, Hematuria Musculoskeletal: denies: Joint pain, Joint swelling, Muscle pain, Muscle stiffness, back pain Hematologic/Lymphatic: denies: Anemia, Easy bleeding, Easy bruising, Blood clots Neurological/Psychological: denies: Confusion, Dementia, Depression, Loss of consciousness Skin: No lesions, no masses, no skin breakdown, no abscesses Physical Exam - Vital signs Vitals: Temp Pulse Resp BP Pulse Ox 97.7 F 60 20 194/96 H 95 06/24/18 11:55 06/24/18 11:55 06/24/18 11:55 06/24/18 11:55 06/24/18 11:55 Interpretation: Bradycardic. No: Hypoxic, Tachypneic - General General appearance: Appears well, Alert - HEENT Head: Normocephalic, Atraumatic Eyes: Normal Pupils: PERRL - Respiratory Respiratory status: No respiratory distress Chest status: Nontender Breath sounds: Normal Chest palpation: Normal - Cardiovascular Rhythm: Irregularly irregular, Bradycardia Heart sounds: Normal auscultation Murmur: No - Abdominal Inspection: Normal Distension: No distension Bowel sounds: Normal Tenderness: Nontender Organomegaly: No organomegaly - Back Back: Normal, Nontender - Extremities General upper extremity: Normal inspection, Nontender, Normal color, Normal ROM, Normal temperature General lower extremity: Normal inspection, Nontender, Normal color, Normal ROM, Normal temperature, Normal weight bearing. No: Edema, Reji's sign - Neurological Neuro grossly intact: Yes Cognition: Normal Orientation: AAOx4 [place] Coma Scale Eye Opening: Spontaneous [place] Coma Scale Verbal: Oriented [place] Coma Scale Motor: Obeys Commands [place] Coma Scale Total: 15 Speech: Normal Motor strength normal: LUE, RUE, LLE, RLE Sensory: Normal - Psychological Associated symptoms: Normal affect, Normal mood - Skin Skin Temperature: Warm Skin Moisture: Dry Skin Color: Other - Diffuse psoriatic patches and plaques bilateral lower extremity and upper extremities. Course - Re-evaluation Re-evalutation: 06/24/18 15:34 Laboratory 06/24/18 06/24/18 06/24/18 12:06 12:06 12:06 WBC 9.0 RBC 4.43 Hgb 12.5 Hct 37.5 MCV 85 MCH 28.3 MCHC 33.4 RDW 17.1 H Plt Count 153 Seg Neutrophils % 73.2 Lymphocytes % 18.8 Monocytes % 5.5 Eosinophils % 1.9 Basophils % 0.6 Absolute Neutrophils 6.6 Absolute Lymphocytes 1.7 Absolute Monocytes 0.5 Absolute Eosinophils 0.2 Absolute Basophils 0.1 PT INR APTT Sodium 143.3 Potassium 4.1 Chloride 104 Carbon Dioxide 32 H Anion Gap 7 BUN 14 Creatinine 0.86 Est GFR ( Amer) > 60 Est GFR (Non-Af Amer) > 60 Glucose 102 Calcium 10.0 Total Bilirubin 1.1 Direct Bilirubin 0.3 Neonat Total Bilirubin Not Reportable Neonat Direct Bilirubin Not Reportable Neonat Indirect Bili Not Reportable AST 26 ALT 41 Alkaline Phosphatase 114 Creatine Kinase 26 L CK-MB (CK-2) 0.88 Troponin I < 0.012 NT-Pro-B Natriuret Pep 4660 H Total Protein 7.0 Albumin 4.0 Urine Color Urine Appearance Urine pH Ur Specific [place] Urine Protein Urine Glucose (UA) Urine Ketones Urine Blood Urine Nitrite Urine Bilirubin Urine Urobilinogen Ur Leukocyte Esterase Urine WBC (Auto) Squamous Epi Cells Auto Calcium Oxalate Cr Auto Urine Mucus (Auto) Urine Ascorbic Acid 06/24/18 06/24/18 12:06 12:44 WBC RBC Hgb Hct MCV MCH MCHC RDW Plt Count Seg Neutrophils % Lymphocytes % Monocytes % Eosinophils % Basophils % Absolute Neutrophils Absolute Lymphocytes Absolute Monocytes Absolute Eosinophils Absolute Basophils PT 13.1 INR 0.94 APTT 27.1 Sodium Potassium Chloride Carbon Dioxide Anion Gap BUN Creatinine Est GFR ( Amer) Est GFR (Non-Af Amer) Glucose Calcium Total Bilirubin Direct Bilirubin Neonat Total Bilirubin Neonat Direct Bilirubin Neonat Indirect Bili AST ALT Alkaline Phosphatase Creatine Kinase CK-MB (CK-2) Troponin I NT-Pro-B Natriuret Pep Total Protein Albumin Urine Color JAZMYN Urine Appearance CLOUDY Urine pH 5.0 Ur Specific [place] 1.029 Urine Protein 30 H Urine Glucose (UA) NEGATIVE Urine Ketones NEGATIVE Urine Blood NEGATIVE Urine Nitrite NEGATIVE Urine Bilirubin SMALL H Urine Urobilinogen 4.0 H Ur Leukocyte Esterase SMALL H Urine WBC (Auto) 5 Squamous Epi Cells Auto 36 Calcium Oxalate Cr Auto TOO NUMEROUS TO CNT Urine Mucus (Auto) MANY Urine Ascorbic Acid NEGATIVE Chest X-Ray 06/24/18 11:59 IMPRESSION: Interval surgery. Interval elevation of the left hemidiaphragm. Suspect small bilateral pleural effusions. Patient has elevated BNP. She has mild pleural effusion. Postoperative changes. Patient is not not currently on any diuretics. Has been taking atorvastatin, amlodipine and metoprolol with aspirin. Was supposed to be on Eliquis but states that she cannot afford it. At this time I have given her some Lasix. I think she needs to be on some diuretics and keep a close eye on her blood pressure as it is elevated. Patient may benefit from diuretics as well as potentially HARISH inhibitor. Patient needs to go to outpatient follow-up but states that she cannot afford it. At this time I do not find anything remarkably significant. I would like to try diuretics first and I have given patient strict instructions of if her symptoms are getting worse over the next several days she should return as she may require more involved treatment but at this time I do not think that she necessarily needs to be admitted. Patient would like to try this as an outpatient as she is a self-pay and already has $500,000 worth of bills. I am going to give her follow-up information for cardiology, prescribe her some Lasix. We discussed potentially being on Coumadin but that will require laboratory testing which will be probably more expensive than the Eliquis. Did discuss the case with Dr. Griffin and he does recommend continuing her on Lasix as well as lisinopril and starting Coumadin. Patient has outpatient follow-up. I will begin Coumadin at this time. Patient will be given instructions regarding Coumadin and HARISH inhibitors. - Vital Signs Vital signs: Temp Pulse Resp BP Pulse Ox 97.7 F 60 15 204/92 H 99 06/24/18 11:55 06/24/18 11:55 06/24/18 12:14 06/24/18 12:14 06/24/18 12:14 - Laboratory Result Diagrams: 06/24/18 12:06 06/24/18 12:06 Laboratory results interpreted by me: 06/24/18 06/24/18 06/24/18 12:06 12:06 12:06 RDW 17.1 H Carbon Dioxide 32 H Creatine Kinase 26 L NT-Pro-B Natriuret Pep 4660 H Urine Protein Urine Bilirubin Urine Urobilinogen Ur Leukocyte Esterase 06/24/18 12:44 RDW Carbon Dioxide Creatine Kinase NT-Pro-B Natriuret Pep Urine Protein 30 H Urine Bilirubin SMALL H Urine Urobilinogen 4.0 H Ur Leukocyte Esterase SMALL H Discharge - Discharge Clinical Impression: Congestive heart failure (CHF) Qualifiers: Heart failure type: unspecified Heart failure chronicity: unspecified Qualified Code(s): I50.9 - Heart failure, unspecified Condition: Good Disposition: HOME, SELF-CARE Instructions: Congestive Heart Failure ([facility]), High Blood Pressure, Requiring Treatment ([facility]) Additional Instructions: Please follow-up with Dr. Fernandez for INR testing and management of your congestive heart failure and hypertension. I am starting you on Coumadin. Coumadin is a medication which will need to be adjusted on occasion. In the event that you fall and hit your head or have any trauma you need to be seen by medical provider as there is an increased risk for internal hemorrhage and bleeding. I am also starting you on a blood pressure medication called lisinopril. This is a HARISH inhibitor. There is a known side effect with HARISH inhibitors which is called angioedema. Angioedema is a severe allergic reaction. In the event that you develop any swelling of the tongue or lips, difficulty breathing you should be seen to make sure you have not developed this rare allergic reaction. The other medication I am starting you on is Lasix. Lasix is a diuretic which will help get rid of some of the fluid. This can also cause lower potassium levels so you may need to increase your dietary intake of potassium. Sometimes even potassium supplements may be needed but at this time do not begin any loyw-mid-fafhfaw supplements Prescriptions: Warfarin Sodium [Coumadin 5 mg Tablet] 5 mg PO QHS 90 Days #90 tablet Furosemide [Lasix 20 mg Tablet] 20 mg PO QAM 90 Days #90 tablet Lisinopril [Prinivil 5 mg Tablet] 5 mg PO DAILY 90 Days #90 tablet Forms: Follow-Up Laboratory Testing Referrals: LAVELL FERNANDEZ MD [[facility]] - Follow up in 1 week
[2018-06-24 12:46] LABS: CREATINE KINASE MB 0.88 ng/mL (<4.55); NT PRO BNP 4660 pg/mL (5-900)
--- NOTE | 2018-06-24 12:48 | RADIOLOGY REPORT (SQ) ---
EXAM DESCRIPTION: CHEST SINGLE VIEW COMPLETED DATE/TIME: 06/24/2018 12:40 pm REASON FOR STUDY: dyspnea COMPARISON: 02/27/2018 EXAM PARAMETERS: NUMBER OF VIEWS: One view. TECHNIQUE: Single frontal radiographic view of the chest acquired. RADIATION DOSE: NA LIMITATIONS: None. FINDINGS: LUNGS AND PLEURA: Minimal blunting of both CP angles. Possible small effusions. MEDIASTINUM AND HILAR STRUCTURES: Interval elevation of the left hemidiaphragm. HEART AND VASCULAR STRUCTURES: Heart normal in size. Normal vasculature. BONES: Interval sternal wires. HARDWARE: None in the chest. OTHER: No other significant finding. IMPRESSION: Interval surgery. Interval elevation of the left hemidiaphragm. Suspect small bilatera l pleural effusions. TECHNICAL DOCUMENTATION: JOB ID: [id number] [email or web address]- All Rights Reserved Reading location - IP/workstation name: [email or web address]
[2018-06-24 12:49] LABS: INTERNATIONAL RATION (INR) 0.94; PROTHROMBIN TIME 13.1 SEC (11.4-15.4)
[2018-06-24 12:50] LABS: PARTIAL THROMBOPLASTIN TIME 27.1 SEC (23.5-35.8)
[2018-06-24 12:56] LABS: TROPONIN I < 0.012 ng/mL
[2018-06-24 13:26] LABS: APPEARANCE,URINE CLOUDY; BILIRUBIN,URINE SMALL (NEGATIVE); CALCIUM OXALATE CRYSTALS,URINE TOO NUMEROUS TO CNT /HPF; COLOR,URINE AMBER; GLUCOSE, URINE NEGATIVE (NEGATIVE); KETONES,URINE NEGATIVE (NEGATIVE); LEUKOCYTE ESTERASE,URINE SMALL (NEGATIVE); NITRITE,URINE NEGATIVE (NEGATIVE); PROTEIN,URINE 30 mg/dL (NEGATIVE); URINE SPECIFIC GRAVITY 1.029
[2018-06-24] MEDS ORDERED: FUROSEMIDE INJ/PF 40 MG/4 ML SDV IV ONE (14:06)
[2018-06-24] MEDS ORDERED: WARFARIN SODIUM 5 MG TABLET PO ONE (15:53)
[2018-06-24] MEDS ORDERED: LISINOPRIL 5 MG TABLET PO ONE (15:53)
[2018-06-24 16:24] VITALS: BP 173/87
--- NOTE | 2018-06-24 16:38 | EKG REPORT ---
SEVERITY:- ABNORMAL ECG - ATRIAL FIBRILLATION LVH W/ REPOL ABNORMALITIES, POSSIBLE ISCHEMIA : Confirmed by: Lina Cardoso 24-Jun-2018 16:38:05
== END 2018-06-24 16:27 | disposition home or self-care (01) ==
LOC: ER 11:49
DX: I11.0 Hypertensive heart disease with heart failure (principal); I50.9 Heart failure, unspecified; I48.91 Unspecified atrial fibrillation; T45.526A Underdosing of antithrombotic drugs, initial encounter; Z91.120 Patient's intentional underdosing of medication regimen due to financial hardship; Z91.14 Patient's other noncompliance with medication regimen; J90 Pleural effusion, not elsewhere classified; R00.1 Bradycardia, unspecified; L40.9 Psoriasis, unspecified; Z79.82 Long term (current) use of aspirin; Z87.891 Personal history of nicotine dependence
CPT/HCPCS: 93005; 99285; 36415; 82553; 82550; 85025; 85610; 85730; 80053; 81001; 84484; 83880; 71045; 93010; J1940